=== PATIENT | female | born 1965 | race Caucasian/White ===

== ENCOUNTER 2020-10-30 11:02 | Day surgery (SDC) | payer OTHER ==
[2020-10-30] MEDS ORDERED: Depo-Medrol 40 MG/ML IM ONE (11:03)
[2020-10-30] MEDS ORDERED: BUPIVACAINE 0.5% VIAL IJ ONE (11:03)
[2020-10-30] MEDS ORDERED: Sodium Chloride 0.9(Preservative Free) 10 ML IJ ONE (11:03)
[2020-10-30] MEDS ORDERED: DIPRIVAN 200 MG/20 ML IV ONE (13:09)
[2020-10-30] MEDS ORDERED: Ketamine HCl 50 MG/ML ONE (13:10)
--- NOTE | 2020-10-30 13:53 | XRAY ---
10 seconds of fluoroscopy was used in surgery for a right greater trochanteric bursa injection.
--- NOTE | 2020-10-30 13:53 | XRAY ---
1 minute 5 seconds of fluoroscopy was used in surgery for a right L4-L5 and L5-S1 transforaminal ABDIEL.
--- NOTE | 2020-10-30 13:55 | XRAY ---
Indication: Right L4-S1 transforaminal ABDIEL. Intraoperative fluoroscopy was provided for 1 minute 5 seconds. 5 digital spot images submitted for interpretation demonstrates posterior needle tips projecting over the expected right L4 and L5 nerve roots. Small amount of contrast injected for needle tip placement. Correlate with intraoperative findings/report.
--- NOTE | 2020-10-30 13:57 | XRAY ---
Indication: Right greater trochanter bursa injection. Intraoperative fluoroscopy was provided for 10 seconds. Single digital spot image obtained prone demonstrates needle tip just lateral to the right greater trochanter. Small amount of contrast injected for needle tip placement. Correlate with intraoperative findings/report.
[2020-10-30] MEDS ORDERED: Lactated Ringers 1,000 ML IV ONE (15:30)
== END 2020-10-30 13:50 | disposition home or self-care (01) ==
LOC: SDC-PAIN 11:02
PROVIDERS: ATTEND Psychiatry & Neurology Pain Medicine
DX: M54.16 Radiculopathy, lumbar region (principal); M70.61 Trochanteric bursitis, right hip
CPT/HCPCS: 20610; 64483; 72100; 73501; 77002; 77003; J1030; J2704; Q9966

== ENCOUNTER 2021-01-01 10:01 | Day surgery (SDC) | payer OTHER ==
[2021-01-01] MEDS ORDERED: Xylocaine 1% Vial 30 ML PF IJ ONE (10:02)
[2021-01-01] MEDS ORDERED: Depo-Medrol 40 MG/ML IM ONE (10:02)
[2021-01-01] MEDS ORDERED: Decadron 4 MG INJ IV ONE (10:02)
[2021-01-01] MEDS ORDERED: BUPIVACAINE 0.5% VIAL IJ ONE (10:02)
[2021-01-01] MEDS ORDERED: Ketamine HCl 50 MG/ML ONE (11:24)
[2021-01-01] MEDS ORDERED: DIPRIVAN 200 MG/20 ML IV ONE (11:24)
[2021-01-01] MEDS ORDERED: Xopenex 1.25 MG/0.5 ML UD NEBULE IH ONE (12:22)
[2021-01-01 12:29] VITALS: PULSE 86; O2SAT 98
--- NOTE | 2021-01-01 13:04 | XRAY ---
Indication: Right SI joint and piriformis muscle injection. Intraoperative fluoroscopy was provided for 23 seconds. 3 digital spot images submitted for interpretation demonstrates posterior needle tip projecting over the inferior right SI joint. Second needle tip projects over the expected right piriformis muscle with small amount of contrast injected for needle tip placement. Correlate with intraoperative findings/report.
[2021-01-01] MEDS ORDERED: Lactated Ringers 1,000 ML IV ONE (14:05)
--- NOTE | 2021-01-01 14:21 | XRAY ---
23 seconds fluoroscopy time in surgery for right SI joint and right piriformis muscle injections.
== END 2021-01-01 12:10 | disposition home or self-care (01) ==
LOC: SDC-PAIN 10:01
PROVIDERS: ATTEND Psychiatry & Neurology Pain Medicine
DX: M46.1 Sacroiliitis, not elsewhere classified (principal); M60.9 Myositis, unspecified; D64.9 Anemia, unspecified; K21.9 Gastro-esophageal reflux disease without esophagitis; F41.8 Other specified anxiety disorders; G47.30 Sleep apnea, unspecified; Z79.899 Other long term (current) drug therapy
CPT/HCPCS: 20552; 27096; 72202; 77002; 94640; J1030; J1100; J2001; J2704; G0260

== ENCOUNTER 2021-03-05 13:09 | Day surgery (SDC) | payer OTHER ==
[2021-03-05] MEDS ORDERED: BUPIVACAINE 0.5% VIAL IJ ONE (13:10)
[2021-03-05] MEDS ORDERED: Depo-Medrol 40 MG/ML IM ONE (13:10)
[2021-03-05] MEDS ORDERED: DIPRIVAN 200 MG/20 ML IV ONE (14:51)
[2021-03-05] MEDS ORDERED: Lactated Ringers 1,000 ML IV ONE (16:13)
--- NOTE | 2021-03-05 16:46 | XRAY ---
Indication: Right greater trochanter injection. Intraoperative fluoroscopy provided for 6 seconds. Single digital spot image submitted for interpretation demonstrates needle tip projecting just lateral to the right greater trochanter. Small amount of contrast injected for needle tip placement. Correlate with intraoperative findings/report.
--- NOTE | 2021-03-05 16:46 | XRAY ---
Indication: Left greater trochanter injection. Intraoperative fluoroscopy provided for 7 seconds. Single digital spot image submitted for interpretation demonstrates needle tip projecting just lateral to the left greater trochanter. Small amount of contrast injected for needle tip placement. Correlate with intraoperative findings/report.
--- NOTE | 2021-03-05 16:48 | XRAY ---
7 seconds fluoroscopy time in surgery for injection of the greater trochanter of the left t hip.
--- NOTE | 2021-03-05 16:48 | XRAY ---
6 seconds fluoroscopy time in surgery for injection of the greater trochanter of the right hip.
== END 2021-03-05 15:18 | disposition home or self-care (01) ==
LOC: SDC-PAIN 13:09
PROVIDERS: ATTEND Psychiatry & Neurology Pain Medicine
DX: M70.62 Trochanteric bursitis, left hip (principal); M70.61 Trochanteric bursitis, right hip; D64.9 Anemia, unspecified; F41.8 Other specified anxiety disorders; G47.30 Sleep apnea, unspecified; Z79.899 Other long term (current) drug therapy
CPT/HCPCS: 20610; 73501; 77002; J1030; J2704; Q9966

== ENCOUNTER 2021-05-14 11:01 | Day surgery (SDC) | payer OTHER ==
[2021-05-14] MEDS ORDERED: Depo-Medrol 40 MG/ML IM ONE (11:02)
[2021-05-14] MEDS ORDERED: Pepcid 20 MG VIAL IV ONE (11:02)
[2021-05-14] MEDS ORDERED: BUPIVACAINE 0.5% VIAL IJ ONE (11:02)
[2021-05-14] MEDS ORDERED: DIPRIVAN 200 MG/20 ML IV ONE (12:24)
[2021-05-14] MEDS ORDERED: Lactated Ringers 1,000 ML IV ONE (16:29)
--- NOTE | 2021-05-15 11:34 | XRAY ---
12 seconds fluoroscopy time in surgery for injection of the right SI joint.
--- NOTE | 2021-05-15 11:44 | XRAY ---
12 seconds fluoroscopy time in surgery for injection of the bursa of the left greater trochanter.
== END 2021-05-14 13:12 | disposition home or self-care (01) ==
LOC: SDC-PAIN 11:01
PROVIDERS: ATTEND Psychiatry & Neurology Pain Medicine
DX: M46.1 Sacroiliitis, not elsewhere classified (principal); D64.9 Anemia, unspecified; K21.9 Gastro-esophageal reflux disease without esophagitis; F41.9 Anxiety disorder, unspecified; F32.9 Major depressive disorder, single episode, unspecified; Z79.899 Other long term (current) drug therapy
CPT/HCPCS: 20610; 27096; 72020; 73501; 77002; J1030; J2704; Q9966; G0260

== ENCOUNTER 2021-07-02 18:00 | Day surgery (SDC) | payer OTHER ==
[2021-07-02] MEDS ORDERED: Depo-Medrol 40 MG/ML IM ONE (18:01)
[2021-07-02] MEDS ORDERED: BUPIVACAINE 0.5% VIAL IJ ONE (18:01)
[2021-07-02] MEDS ORDERED: Xylocaine 1% Vial 30 ML PF IJ ONE (18:01)
--- NOTE | 2021-07-02 21:18 | XRAY ---
Indication: Right knee injection. Intraoperative fluoroscopy provided for 7 seconds. Single digital spot image submitted for interpretation demonstrates needle tip projecting over the right femur intercondylar notch. Small amount of contrast injected for needle tip placement. Correlate with intraoperative findings/report.
--- NOTE | 2021-07-02 21:20 | XRAY ---
Indication: Left greater trochanter bursa injection. Intraoperative fluoroscopy provided for 8 seconds. Single digital spot image submitted for interpretation demonstrates needle tip projecting lateral to the left greater trochanter. Small amount of contrast injected for needle tip placement. Correlate with intraoperative findings/report.
--- NOTE | 2021-07-02 21:29 | XRAY ---
Indication: Left knee injection. Intraoperative fluoroscopy provided for 4 seconds. Single digital spot image submitted for interpretation demonstrates needle tip projecting over the left femur intercondylar notch. Small amount of contrast injected for needle tip placement. Correlate with intraoperative findings/report.
--- NOTE | 2021-07-03 08:37 | XRAY ---
7 seconds fluoroscopy time in surgery for intra-articular injection of the right knee.
--- NOTE | 2021-07-03 08:37 | XRAY ---
8 seconds fluoroscopy time in surgery for injection of the greater trochanter of the left hip.
--- NOTE | 2021-07-03 08:42 | XRAY ---
4 seconds fluoroscopy time in surgery for intra-articular injection of the left knee.
== END 2021-07-02 19:46 | disposition home or self-care (01) ==
LOC: SDC-PAIN 18:00
PROVIDERS: ATTEND Psychiatry & Neurology Pain Medicine
DX: M17.0 Bilateral primary osteoarthritis of knee (principal); M70.62 Trochanteric bursitis, left hip; M16.12 Unilateral primary osteoarthritis, left hip; Z79.899 Other long term (current) drug therapy
CPT/HCPCS: 20610; 73501; 73560; 77002; J1030; J2001; Q9966

== ENCOUNTER 2022-07-15 09:45 | Day surgery (SDC) | payer OTHER ==
[2022-07-15] MEDS ORDERED: Pepcid 20 MG VIAL IV ONE (09:46)
[2022-07-15] MEDS ORDERED: LIDOCAINE HCL 2% 100 MG/5 ML IJ ONE (09:46)
[2022-07-15] MEDS ORDERED: Reglan 10 MG/2 ML ONE (10:53)
[2022-07-15] MEDS ORDERED: DIPRIVAN 200 MG/20 ML IV ONE (11:14)
[2022-07-15] MEDS ORDERED: Lactated Ringers 1,000 ML IV ONE (13:06)
--- NOTE | 2022-07-15 17:24 | XRAY ---
Indication: Bilateral L4-S1 MBB. Intraoperative fluoroscopy provided for 13 seconds. Single digital spot image submitted for interpretation demonstrates posterior needle tips projecting over the expected left and right L4-S1 nerve roots. Correlate with intraoperative findings/report.
--- NOTE | 2022-07-15 17:45 | XRAY ---
13 seconds fluoroscopy time in surgery for bilateral L4-S1 MBB.
== END 2022-07-15 11:40 | disposition home or self-care (01) ==
LOC: SDC-PAIN 09:45
PROVIDERS: ATTEND Psychiatry & Neurology Pain Medicine
DX: M47.816 Spondylosis without myelopathy or radiculopathy, lumbar region (principal); Z79.899 Other long term (current) drug therapy
CPT/HCPCS: 64493; 64494; 72020; 77002; 82947; J2704

== ENCOUNTER 2022-08-26 09:32 | Day surgery (SDC) | payer OTHER ==
[2022-08-26] MEDS ORDERED: DIPRIVAN 200 MG/20 ML IV ONE (11:42)
--- NOTE | 2022-08-26 13:19 | XRAY ---
Indication: Bilateral L4-S1 MBB. Intraoperative fluoroscopy provided for 9 seconds. Single digital spot image submitted for interpretation demonstrates posterior needle tips projecting over the expected left and right L4-S1 nerve roots. Correlate with intraoperative findings/report.
--- NOTE | 2022-08-26 13:20 | XRAY ---
Indication: Left hip injection. Intraoperative fluoroscopy provided for 11 seconds. Single digital spot image obtained prone submitted for interpretation demonstrates needle tip lateral to left greater trochanter with small amount of contrast injected for needle tip placement. Correlate with intraoperative findings/report.
--- NOTE | 2022-08-26 13:23 | XRAY ---
11 seconds fluoroscopy time in surgery for injection of the greater trochanter of the left hip.
--- NOTE | 2022-08-26 13:23 | XRAY ---
9 seconds fluoroscopy time in surgery for bilateral L4-S1 MBB.
[2022-08-26] MEDS ORDERED: Lactated Ringers 1,000 ML IV ONE (14:21)
== END 2022-08-26 12:20 | disposition home or self-care (01) ==
LOC: SDC-PAIN 09:32
PROVIDERS: ATTEND Psychiatry & Neurology Pain Medicine
DX: M47.816 Spondylosis without myelopathy or radiculopathy, lumbar region (principal); M16.12 Unilateral primary osteoarthritis, left hip; Z79.899 Other long term (current) drug therapy
CPT/HCPCS: 20610; 64493; 64494; 72020; 73501; 77002; 82947; J2704; Q9966

== ENCOUNTER 2023-12-01 15:53 | Day surgery (SDC) | payer OTHER ==
[2023-12-01] MEDS ORDERED: Depo-Medrol 40 MG/ML IM ONE (15:54)
[2023-12-01] MEDS ORDERED: XYLOCAINE-MPF 1% 5ML SDV IJ ONE (15:54)
[2023-12-01] MEDS ORDERED: BUPIVACAINE 0.5% VIAL IJ ONE (15:54)
--- NOTE | 2023-12-01 20:55 | XRAY ---
Indication: Right shoulder and subacromial bursa injection. Intraoperative fluoroscopy provided for 34 seconds. 6 digital spot images submitted for interpretation demonstrates needle tip projecting over right glenohumeral joint superiorly. Second needle tip subacromial. Small amount of contrast injected for needle tip placement. Correlate with intraoperative findings/report.
--- NOTE | 2023-12-02 09:17 | XRAY ---
34 seconds of fluoroscopy was used in surgery for a right intra-articular shoulder and subacromial bursa injection.
== END 2023-12-01 19:04 | disposition home or self-care (01) ==
LOC: SDC-PAIN 15:53
PROVIDERS: ATTEND Psychiatry & Neurology Pain Medicine
DX: M19.011 Primary osteoarthritis, right shoulder (principal); M75.51 Bursitis of right shoulder; R73.03 Prediabetes
CPT/HCPCS: 20610; 73030; 77002; 82947; J1030; Q9966